=== PATIENT | male | born 1985 | race Caucasian/White ===

== ENCOUNTER 2016-12-25 21:44 | Emergency (ER) | payer OTHER ==
[~2016-12-25] VITALS: Ht 177.8 cm; Wt 99.8 kg
[2016-12-25 22:00] VITALS: BP 122/73
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
[2016-12-25] MEDS ORDERED: IBUPROFEN600 MG ORAL (22:25)
[2016-12-25] MEDS ORDERED: BACITRACIN ZIN1 EACH TOPIC (22:25)
[2016-12-25] MEDS ORDERED: Tetanus/Diptheria/Pertussis Vaccine 0.5ml Syr IM ONE (22:30)
[2016-12-25] MEDS ORDERED: Bacitracin Oint 15gm Tube TOPIC SCH (22:30)
[2016-12-25 22:40] VITALS: BP 122/73
--- NOTE | 2016-12-26 10:13 | Diagnostic Imaging Report ---
Indication: PAIN Technique: 3 views right hand Comparison: none Findings: No acute fractures. No dislocations. Joint spaces are preserved Impression: Negative This agrees with the preliminary interpretation provided by the emergency room physician
== END 2016-12-25 22:38 | disposition home or self-care (01) ==
LOC: EMR 22:08
DX: S60.221A Contusion of right hand, initial encounter (principal); S60.511A Abrasion of right hand, initial encounter; Y35.891A Legal intervention involving other specified means, law enforcement official injured, initial encounter; Y92.89 Other specified places as the place of occurrence of the external cause; Z23 Encounter for immunization
CPT/HCPCS: 90471; 90715; 99284